=== PATIENT | male | born 1965 | race Caucasian/White ===

== ENCOUNTER 2020-12-03 08:20 | Observation (INO) | payer OTHER ==
[~2020-12-03] VITALS: Ht 182.9 cm; Wt 109.0 kg
[2020-12-03 09:28] LABS: RED BLOOD COUNT 6.01 M/UL (4.20-5.50); WHITE BLOOD COUNT 3.7 K/UL (4.5-11.0)
[2020-12-03 09:56] LABS: BUN/CREATININE RATIO 25 (0-10)
[2020-12-03 12:41] LABS: BUN/CREATININE RATIO 27 (0-10)
[2020-12-03] MEDS ORDERED: JANUVIA100 MG PO (13:40)
[2020-12-03] MEDS ORDERED: INDOMETHACIN50 MG PO (13:40)
[2020-12-03] MEDS ORDERED: AMLODIPINE BESY10 MG PO (13:40)
[2020-12-03] MEDS ORDERED: ATENOLOL50 MG PO (13:41)
[2020-12-03] MEDS ORDERED: JARDIANCE25 MG PO (13:42)
[2020-12-03] MEDS ORDERED: LIPITOR TAB 2020 MG PO (13:42)
[2020-12-03] MEDS ORDERED: FENOFIBRATE160 MG PO (13:42)
[2020-12-03] MEDS ORDERED: LISINOPRIL40 MG PO (13:43)
[2020-12-03] MEDS ORDERED: HYDROCHLOROTH12.5 M1 PO (13:43)
[2020-12-03] MEDS ORDERED: METFORMIN HCL1000 MG PO (13:44)
[2020-12-03] MEDS ORDERED: LOSARTAN POTAS100 MG PO (13:44)
[2020-12-03] MEDS ORDERED: CIALIS20 MG PO (13:45)
[2020-12-03] MEDS ORDERED: GINSENG100 MG PO (13:46)
[2020-12-03] MEDS ORDERED: VITAMIN B COMP1 EAC1 PO (13:47)
[2020-12-03] MEDS ORDERED: VITAMIN D250 MCG PO (13:48)
[2020-12-03 16:48] LABS: BUN/CREATININE RATIO 24 (0-10)
[2020-12-03 19:41] LABS: BUN/CREATININE RATIO 23 (0-10)
[2020-12-04 00:11] LABS: BUN/CREATININE RATIO 22 (0-10)
[2020-12-04 05:36] LABS: HEMOGLOBIN 14.1 gm/dl (14.0-17.5); RED BLOOD COUNT 5.1 M/UL (4.20-5.50)
[2020-12-04 06:01] LABS: BUN/CREATININE RATIO 20 (0-10)
[2020-12-04] MEDS ORDERED: ASPIRIN EC81 MG PO (11:38)
== END 2020-12-04 11:15 | disposition home or self-care (01) ==
LOC: ER1 08:20 → CCU 10:35 → CDU 10:35 → CCU 15:48
PROVIDERS: Emergency Medicine; Physician Assistant Medical; ADMIT Internal Medicine Infectious Disease
DX: E11.10 Type 2 diabetes mellitus with ketoacidosis without coma (principal); U07.1 COVID-19; J12.82 Pneumonia due to coronavirus disease 2019; I10 Essential (primary) hypertension; E78.5 Hyperlipidemia, unspecified; I77.819 Aortic ectasia, unspecified site; K80.20 Calculus of gallbladder without cholecystitis without obstruction; Z79.84 Long term (current) use of oral hypoglycemic drugs; Z79.899 Other long term (current) drug therapy; Z90.49 Acquired absence of other specified parts of digestive tract; Z88.0 Allergy status to penicillin
CPT/HCPCS: 36415; 71045; 80048; 80053; 82009; 82550; 82553; 82800; 82962; 83036; 83605; 83690; 83735; 83874; 83880; 84484; 85025; 85379; 93005; 96374; 99285; G0378; J1650; J2405; J7040; Q9967